=== PATIENT | male | born 1965 | race Caucasian/White ===

== ENCOUNTER → 2016-05-07 | Day surgery (SDC) | payer OTHER ==
[~2016-05-07] MED LIST: ACETAMINOPHEN500 M2 PO; ASPIRIN81 M2 PO; CENTRUM SILVER1 EACH PO; DARVOCET-N 1001 TA1 PO; DILANTIN KAPSE100 MG PO; DILANTIN PO; FLEXERIL10 MG PO; IBUPROFEN800 MG PO; LORTAB 10/500 T1 TAB PO; NEURONTIN PO; NEURONTIN100 MG PO; NEURONTIN300 MG PO; NORVASC PO; PAXIL PO; PHENERGAN25 MG PO; PRILOSEC PO
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
== END | disposition home or self-care (01) ==
LOC: CCSC 09:46
DX: M51.16 Intervertebral disc disorders with radiculopathy, lumbar region (principal); M48.06 Spinal stenosis, lumbar region
CPT/HCPCS: J1040; J2250

== ENCOUNTER → 2016-05-13 | Outpatient (CLI) | payer MEDICARE ==
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
== END | disposition home or self-care (01) ==
LOC: CGUS 13:54
DX: N50.82 Scrotal pain (principal); N50.89 Other specified disorders of the male genital organs; S39.94XA Unspecified injury of external genitals, initial encounter
CPT/HCPCS: 93975

== ENCOUNTER → 2016-07-14 | Day surgery (SDC) | payer MEDICARE ==
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
== END | disposition home or self-care (01) ==
LOC: CCSC 09:39
DX: M51.16 Intervertebral disc disorders with radiculopathy, lumbar region (principal); M99.73 Connective tissue and disc stenosis of intervertebral foramina of lumbar region; F17.200 Nicotine dependence, unspecified, uncomplicated; Z88.5 Allergy status to narcotic agent; Z88.8 Allergy status to other drugs, medicaments and biological substances; Z91.030 Bee allergy status; Z88.0 Allergy status to penicillin; Z79.891 Long term (current) use of opiate analgesic; Z79.82 Long term (current) use of aspirin; Z79.899 Other long term (current) drug therapy
CPT/HCPCS: J1040; J2250